=== PATIENT | female | born 1945 | race Two or more races ===

== ENCOUNTER 2024-03-25 12:09 | Emergency (ER) | payer OTHER ==
[~2024-03-25] VITALS: Ht 157.5 cm; Wt 59.0 kg
[2024-03-25] MEDS ORDERED: LEVOTHYROXINE25 MCG PO (12:32)
[2024-03-25] MEDS ORDERED: KETOROLAC TROMETHAMINE 60 MG VIAL IM STA (14:20)
[2024-03-25] MEDS ORDERED: KETOROLAC TROMETHAMINE 60 MG VIAL IM ONE (14:24)
[2024-03-25 14:39] LABS: HEMATOCRIT 37.7 % (36.0-45.00); HEMOGLOBIN 12.9 g/dL (12.0-15.00); MEAN CELL VOLUME 89.9 fL (80.00-100.00); MEAN CORPUSCULAR HEMOGLOBIN 30.7 pg (27.00-32.0); MEAN CORPUSCULAR HGB CONC 34.1 g/dl (32.0-36.0); PLATELET COUNT 294 K/uL (150-450); RED CELL DISTRIBUTION WIDTH 13.3 % (11.5-14.5)
[2024-03-25 15:12] LABS: CALCIUM 8.8 mg/dL (8.5-10.1); CREATININE SERUM 0.92 mg/dL (0.55-1.02); GFR 59.19; POTASSIUM 4.12 mEq/L (3.5-5.1)
[2024-03-25 15:21] LABS: PH,URINE 6.5 (5.0-8.0); URINE APPEARANCE Clear; URINE BILIRRUBIN Negative (NEGATIVE); URINE BLOOD Negative; URINE COLOR Yellow; URINE GLUCOSE Negative (NEGATIVE); URINE KETONE Negative (NEGATIVE); URINE LEUKOCYTE Negative; URINE NITRATE Negative; URINE PROTEIN Negative (NEGATIVE); URINE UROBILINOGEN 0.2 E.U./dl
[2024-03-25 15:24] LABS: URINE EPITHELIAL CELLS 4.3 uL (0.0-38.8); URINE RBC 3.2 uL (0.0-20.8)
[2024-03-25 15:25] LABS: URINE BACTERIA 1.2 uL (0.0-1933); URINE WBC 1.6 uL (0.0-23.2)
[2024-03-25] MEDS ORDERED: PEPCID AC20 MG PO (18:16)
== END 2024-03-25 18:27 | disposition home or self-care (01) ==
LOC: ER 12:11
PROVIDERS: General Practice
DX: R10.9 Unspecified abdominal pain (principal); R10.2 Pelvic and perineal pain; E03.8 Other specified hypothyroidism
CPT/HCPCS: 36415; 74176; 96372; 99284; J1885